=== PATIENT | male | born 1985 | race Caucasian/White ===

== ENCOUNTER 2016-07-03 23:13 | Emergency (ER) | payer BC ==
[~2016-07-03] VITALS: Ht 180.3 cm; Wt 91.0 kg
[2016-07-03 23:17] VITALS: Ht 180.3 cm; Wt 91.0 kg
[2016-07-04] MEDS ORDERED: LIDOCAINE 1% (MDV) 20 ML INJ SC ONE (00:30)
--- NOTE | 2016-07-04 01:03 | ERD ---
ER Documentation Chief Complaint Date/Time DATE: 07/04/16 TIME: 01:01 Chief Complaint right 2nd finger laceration while working with tiles at 8 pm HPI 28-year-old male presents with chief complaint of right index finger laceration which occurred at 8 PM tonight. Patient states that he was working with tiles in his bathroom and cut his finger against a sharp edge. He reports flushing with tap water and applying a Band-Aid to control bleeding. Last tetanus vaccine was last year. He denies numbness and loss of range of motion. Currently rates his pain a 4 out of 10 in severity, took Advil with relief prior to arrival. ROS All systems reviewed and are negative except as per history of present illness. Allergies Allergies: Coded Allergies: No Known Drug Allergies (Verified Allergy, Unknown, 07/03/16) PMhx/Soc Medical and Surgical Hx: pt denies Medical Hx History of Surgery: Yes (knee sx) Anesthesia Reaction: No Hx Neurological Disorder: No Hx Respiratory Disorders: No Hx Cardiac Disorders: No Hx Psychiatric Problems: No Hx Miscellaneous Medical Probl: No Hx Alcohol Use: Yes Hx Substance Use: Yes (marijuana daily) Hx Tobacco Use: No Physical Exam Vitals Vital Signs Date Time Temp Pulse Resp B/P Pulse Ox O2 Delivery O2 Flow Rate FiO2 07/03/16 23:17 98.7 110 20 137/86 97 Physical Exam GENERAL: Non-toxic. No apparent signs of distress. LUNGS: Clear to auscultation. No accessory muscle use. No wheezing, no crackles. No signs or symptoms of respiratory distress. HEART: Regular rate and rhythm. No murmurs, clicks, rubs or gallops. EXTREMITIES: No peripheral cyanosis or edema. Full range of motion. Good capillary refill. Laceration of her right dorsal index finger, just inferior to PIP. Full range of motion in all fingers. 2+ radial pulses bilaterally. NEURO: The patient moves all 4 extremities with 5/5 strength. Cranial nerves are grossly intact. Normal mental status for age. Good muscle tone. SKIN: There is no apparent rash, petechiae, erythema or swelling. Good skin turgor. 2.5 cm laceration over dorsal right index finger, just inferior to PIP. Mild active bleeding. No surrounding ecchymosis or edema. Results 24 hrs Current Medications Medications (Trade) Dose Ordered Sig/Keira Route PRN Reason Start Time Stop Time Status Last Admin Dose Admin Lidocaine (Xylocaine 1% (Mdv) 20 ml) 20 ml ONCE ONCE SC 07/04/16 00:30 07/04/16 00:31 DC Procedures/MDM Patient presents with complaint of right index finger laceration, on exam the laceration measures 2.5 cm in length with mild active bleeding. Patient has full range of motion in all fingers, good capillary refill, and a 2+ radial pulse. He states that his tetanus is up-to-date, he received one last year. He appears to be no acute distress. Explained that the laceration was irrigated at home. To the patient that suture closure would be necessary to to depth and size of laceration. Patient agreed to this plan. Laceration Repair by me: Anesthesia: 1% lidocaine digital block Location: Right dorsal index finger, just inferior to PIP Tendon/Joint/Nerves: No injury Foreign body: None detected after copious irrigation and exploration Technique: Simple Interrupted Sutures Complexity: No subcutaneous sutures/mucosal repair/ edge excision Post Closure Length: 2.5 cm Patient's bleeding was easily controlled in the department and there is no indication of anemia. Patient placed in a metal finger splint to avoid tension on sutures with movement of finger. No evidence of compartment syndrome, neurologic injury, vascular injury, open joint, tendon laceration, or foreign body. Patient is appropriate for outpatient follow up. 48 hour wound check. Scar minimization instructions given. Departure Diagnosis: Primary Impression: Laceration of right index finger Condition: Becka Kearns PA-C July 04, 2016 01:03
== END 2016-07-04 01:17 | disposition home or self-care (01) ==
LOC: FTE 23:13
DX: S61.210A Laceration without foreign body of right index finger without damage to nail, initial encounter (principal); W26.9XXA Contact with unspecified sharp object(s), initial encounter; Y92.002 Bathroom of unspecified non-institutional (private) residence as the place of occurrence of the external cause